=== PATIENT | male | born 1995 | race Caucasian/White ===

== ENCOUNTER → 2018-06-29 | Outpatient (CLI) | payer BC ==
--- NOTE | 2018-06-29 13:32 | Diagnostic Imaging Report ---
INDICATION: Right testicular lump. FINDINGS: The right testicle measures 4.4 x 2.3 x 2.6 cm and the left testicle measures 4.1 x 2.1 x 3.2 cm. Both testes show homogeneous echotexture. No discrete testicular mass is seen. There is blood flow to both testes. Epididymides are unremarkable. There appears to be small hydroceles bilaterally. IMPRESSION: Unremarkable scrotal ultrasound. No testicular mass is identified. Dictated by: Dictated on workstation # [id number]
== END ==
LOC: RAD 12:17
PROVIDERS: ATTEND Nurse Practitioner Family
DX: N44.8 Other noninflammatory disorders of the testis (principal); N50.89 Other specified disorders of the male genital organs; J30.9 Allergic rhinitis, unspecified; H65.91 Unspecified nonsuppurative otitis media, right ear
CPT/HCPCS: 76870